=== PATIENT | female | born 1950 | race Caucasian/White ===

== ENCOUNTER 2020-11-03 17:58 | Emergency (ER) | payer MEDICARE, BC ==
[2020-11-03] MEDS ORDERED: Sodium Chloride 0.9% 10 ML Syringe FLUSH PRN (18:50)
--- NOTE | 2020-11-03 19:46 | CT ---
Head CT Technique: Multiple axial sections through the brain were obtained. Intravenous contrast was not utilized. Reconstructed coronal and sagittal images were also obtained. Comparison: No prior intracranial imaging is available. Findings: Ventricles along with basal cisterns and sulci over the convexities appear within normal limits for the patient's age. Small low density area is noted within the left basal ganglia compatible with old lacunar infarct. No other abnormal parenchymal densities are seen. No evidence of intracranial hemorrhage is seen. No midline shift or mass-effect is seen. Bone window settings were reviewed. Visualized mastoid sinuses and paranasal sinuses show nothing acute. No acute calvarial abnormality is appreciated. Impression: 1. 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 2. No acute intracranial abnormality is seen. Diagnostic code #2
[2020-11-03] MEDS ORDERED: Meclizine 12.5 MG Tab PO ONE (19:51)
--- NOTE | 2020-11-03 20:06 | EDM.PDOC ---
ED HPI GENERAL MEDICAL PROBLEM - General Chief Complaint: Neurological Problem Stated Complaint: HEADACHE/DIZZINESS Time Seen by Provider: 11/03/20 18:24 Source of Information: Reports: Patient History Limitations: Reports: No Limitations - History of Present Illness INITIAL COMMENTS - FREE TEXT/NARRATIVE: 70-year-old female presents the emergency department with complaints of dizziness that started last evening. Per the patient report she states she went to lay down in bed and when she laid down and developed significant dizziness. She states that she also had nausea associated with this however no vomiting and a frontal headache. She denies any blurred vision or double vision. She denies any recent fever chills, vomiting, diarrhea or shortness of breath. She states she has had vertigo in the past however this does not feel similar to that. She denies any right-sided weakness. She denies any recent falls or hitting her head. She denies being on any blood thinners. She states that she noticed significant dizziness when she is ambulating and looking down or when she bends over to pick something up. She also notes that when she sitting if she turns her head from side to side she develops dizziness. She states she has taken Tylenol for her headache and this has seemed to help however the headache does return. - Related Data Allergies Allergy/AdvReac Type Severity Reaction Status Date / Time No Known Allergies Allergy Verified 11/03/20 18:19 Home Meds: Home Meds Aspirin 81 mg PO DAILY 11/03/20 [History] Ezetimibe [Zetia] 10 mg PO DAILY 11/03/20 [History] FLUoxetine [PROzac] 20 mg PO DAILY 11/03/20 [History] Simvastatin 40 mg PO DAILY 11/03/20 [History] Past Medical History - Past Health History Medical/Surgical History: Denies Medical/Surgical History Cardiovascular History: Reports: High Cholesterol Psychiatric History: Reports: Depression Social & Family History - Family History Cardiac: Reports: High Cholesterol, Hypertension, SC - Tobacco Use Tobacco Use Status *Q: Former Tobacco User Years of Tobacco use: 40 Packs/Tins Daily: 0.5 Used Tobacco, but Quit: Yes Month/Year Tobacco Last Used: 06/2016 Second Hand Smoke Exposure: No - Caffeine Use Caffeine Use: Reports: Coffee - Recreational Drug Use Recreational Drug Use: No ED ROS GENERAL - Review of Systems Review Of Systems: Comprehensive ROS is negative, except as noted in HPI. ED EXAM, DIZZINESS - Physical Exam Exam: See Below Exam Limited By: No Limitations General Appearance: Alert, WD/WN, No Apparent Distress Ears: Normal External Exam, Normal Canal, Hearing Grossly Normal, Normal TMs Nose: Normal Inspection Throat/Mouth: Normal Inspection, Normal Lips, Normal Voice, No Airway Compromise Head Exam: Atraumatic Vertigo: worsens with head to L, worsens with head to R, reproducible, short duration Neck: Normal Inspection, Supple Respiratory/Chest: No Respiratory Distress, Lungs Clear, Normal Breath Sounds, No Accessory Muscle Use, Chest Non-Tender Cardiovascular: Normal Peripheral Pulses, Regular Rate, Rhythm, No Edema, No Murmur GI/Abdominal: Normal Bowel Sounds, Soft, Non-Tender, No Distention (Female) Exam: Deferred Rectal (Female) Exam: Deferred Neurological: Alert, Normal Mood/Affect, CN II-XII Intact, Oriented x 3 Back Exam: Normal Inspection Extremities: Normal Inspection Psychiatric: Normal Affect, Normal Mood Skin Exam: Warm, Dry, Intact, Normal Color, No Rash Course - Vital Signs Text/Narrative:: Patient presents with new onset dizziness with position changes or when turning her head from side to side. This started last evening when she went to lay down for bed. She also states that at that time she developed a frontal headache. She states she has taken Tylenol for this and it does seem to abort the headache however it does return. She does have a history of vertigo in the past however she states this feels different. Full neuro exam was completed and it was unremarkable. No nystagmus is noted. I have ordered a CT of the head, CBC, CMP and a magnesium level. Last Recorded V/S: Last Vital Signs Temp 97.1 F 11/03/20 18:11 Pulse 83 11/03/20 18:11 Resp 17 11/03/20 18:11 BP 155/88 H 11/03/20 18:11 Pulse Ox 93 L 11/03/20 18:11 - Orders/Labs/Meds Orders: Active Orders 24 hr Category Date Time Status Sodium Chloride 0.9% [Saline Flush] Med 11/03/20 18:50 Active 10 ml FLUSH ASDIRECTED PRN Saline Lock Insert [OM.PC] Stat Oth 11/03/20 18:50 Ordered Medication Orders Sodium Chloride (Sodium Chloride 0.9% 10 Ml Syringe) 10 ml FLUSH ASDIRECTED PRN PRN Reason: Keep Vein Open Last Admin: 11/03/20 18:58 Dose: 10 ml Documented by: OSMANI Labs: Laboratory Tests 11/03/20 11/03/20 Range/Units 18:16 18:16 WBC 7.54 (3.98-10.04) K/mm3 RBC 4.82 (3.98-5.22) M/mm3 Hgb 14.8 (11.2-15.7) gm/dl Hct 43.9 (34.1-44.9) % MCV 91.1 (79.4-94.8) fl MCH 30.7 (25.6-32.2) pg MCHC 33.7 (32.2-35.5) g/dl RDW Std Deviation 44.0 (36.4-46.3) fL Plt Count 265 (182-369) K/mm3 MPV 10.1 (9.4-12.3) fl Neut % (Auto) 48.0 (34.0-71.1) % Lymph % (Auto) 37.3 (19.3-51.7) % Liberty % (Auto) 11.7 (4.7-12.5) % Eos % (Auto) 2.1 (0.7-5.8) Baso % (Auto) 0.8 (0.1-1.2) % Neut # (Auto) 3.62 (1.56-6.13) K/mm3 Lymph # (Auto) 2.81 (1.18-3.74) K/mm3 Liberty # (Auto) 0.88 H (0.24-0.36) K/mm3 Eos # (Auto) 0.16 (0.04-0.36) K/mm3 Baso # (Auto) 0.06 (0.01-0.08) K/mm3 Sodium 138 (136-145) mEq/L Potassium 4.1 (3.5-5.1) mEq/L Chloride 102 (98-107) mEq/L Carbon Dioxide 25 (21-32) mEq/L Anion Gap 15.1 H (5-15) BUN 15 (7-18) mg/dL Creatinine 0.8 (0.55-1.02) mg/dL Est Cr Clr Drug Dosing 59.51 mL/min Estimated GFR (MDRD) > 60 (>60) mL/min BUN/Creatinine Ratio 18.8 H (14-18) Glucose 104 H (70-99) mg/dL Calcium 9.1 (8.5-10.1) mg/dL Magnesium 2.2 (1.8-2.4) mg/dL Total Bilirubin 0.3 (0.2-1.0) mg/dL AST 31 (15-37) U/L ALT 52 (14-59) U/L Alkaline Phosphatase 105 (46-116) U/L Total Protein 7.5 (6.4-8.2) g/dl Albumin 4.0 (3.4-5.0) g/dl Globulin 3.5 gm/dL Albumin/Globulin Ratio 1.1 (1-2) Meds: Medications Generic Name Dose Route Start Last Admin Trade Name Freq PRN Reason Stop Dose Admin Sodium Chloride 10 ml 11/03/20 18:50 11/03/20 18:58 Sodium Chloride 0.9% 10 Ml Syringe FLUSH 10 ml ASDIRECTED PRN Administration Keep Vein Open Discontinued Medications Generic Name Dose Route Start Last Admin Trade Name Freq PRN Reason Stop Dose Admin Meclizine HCl 12.5 mg 11/03/20 19:51 11/03/20 20:13 Meclizine 12.5 Mg Tab PO 11/03/20 19:52 12.5 mg ONETIME ONE Administration - Re-Assessments/Exams Free Text/Narrative Re-Assessment/Exam: 11/03/20 20:05 Hematology reveals a WBC of 7.54, hemoglobin 14.8, hematocrit 43.9, platelet count 265, chemistry reveals a sodium 138, potassium 4.1, anion gap 15.1, BUN 15, creatinine 0.8, GFR greater than 60, glucose 104, magnesium 2.[address] of the head: 1. 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 2. No acute intracranial abnormality is appreciated. I have ordered for the patient to receive meclizine. Will monitor her for a bit to see if this resolves her dizziness. 11/03/20 21:01 Patient states that she is feeling much better since receiving the meclizine. She states that dizziness is also almost resolved. She will be discharged home. Departure - Departure Time of Disposition: 21:01 Disposition: Home, Self-Care 01 Condition: Good Clinical Impression: Vertigo - Discharge Information Instructions: Vertigo, [id number] Referrals: Brianna Perez MD [Primary Care Provider] - Forms: ED Department Discharge Additional Instructions: You were seen in the emergency department this evening with complaints of dizziness. CT scan of the head was completed and this was unremarkable. Her labs were also completed and these were unremarkable. You are not dehydrated and your electrolytes are all within normal limits. You are given meclizine 1 tab. And this did seem to help to resolve your dizziness. You can buy this medication [id number] at [facility] or any pharmacy. You may take 1 tab every 8 hours as needed for dizziness. Keep in mind that this medication can cause some drowsiness so do not drive while taking the medication. Vertigo should resolve over time however if you are not better in about a week. Recommend that you follow-up with your primary care physician. Sepsis Event Note (ED) - Evaluation Sepsis Screening Result: No Definite Risk - Focused Exam Vital Signs: Vital Signs Temp Pulse Resp BP Pulse Ox 11/03/20 18:11 97.1 F 83 17 155/88 H 93 L - My Orders Last 24 Hours: My Active Orders 11/03/20 18:50 Sodium Chloride 0.9% [Saline Flush] 10 ml FLUSH ASDIRECTED PRN Saline Lock Insert [OM.PC] Stat - Assessment/Plan Last 24 Hours: My Active Orders 11/03/20 18:50 Sodium Chloride 0.9% [Saline Flush] 10 ml FLUSH ASDIRECTED PRN Saline Lock Insert [OM.PC] Stat
== END 2020-11-03 21:10 | disposition home or self-care (01) ==
LOC: JD.ED 17:58
DX: R42 Dizziness and giddiness (principal); E78.00 Pure hypercholesterolemia, unspecified; Z79.82 Long term (current) use of aspirin; Z87.891 Personal history of nicotine dependence; Z79.899 Other long term (current) drug therapy
CPT/HCPCS: 36415; 70450; 80053; 83735; 85025; 99284; A9270